=== PATIENT | male | born 1980 | race Caucasian/White ===

== ENCOUNTER 2016-04-22 11:47 | Emergency (ER) | payer OTHER ==
--- NOTE | 2016-04-22 12:22 | EDDOCDS ---
Physician Documentation [facility] Name: Jj Duval Age: 35 yrs Sex: Male : 1980 Arrival Date: 04/22/2016 Time: 11:47 Bed TR7 Private MD: [facility] [place] Disposition: 04/22/16 12:14 Discharged to Home/Self Care. Impression: Acute frontal sinusitis, unspecified. - Condition is Stable. - Discharge Instructions: Sinusitis, Adult. - Prescriptions for Levaquin 500 mg Oral Tablet - take 1 tablet by ORAL route once daily for 10 days; 10 tablet. Prednisone 20 mg Oral Tablet - take 2 tablet by ORAL route once daily for 5 days; 10 tablet. - Medication Reconciliation, Local Pharmacy Hours form. - Follow up: [facility]; When: Call to arrange an appointment; Reason: Wound/Symptom Recheck, Recheck today's complaints, Worsening of conditions, Continuance of care. - Problem is an ongoing problem. - Symptoms are unchanged. Historical: - Allergies: no known allergies; - Home Meds: 1. amoxicillin 125 mg Oral chew 2 times per day 2. pseudoephedrine HCl 30 mg Oral tab prn (Last dose: 04/21/2016) - PMHx: Sleep Apnea w/ CPAP; - PSHx: Ankle, left fracture repair hardware removal; - Social history: Smoking status: Chewing Tobacco No barriers to communication noted, The patient speaks fluent Latvian. - Family history: Not pertinent. - : The pt / caregiver states he / she is not on anticoagulants. Home medication list is obtained from the patient. - Exposure Risk Screening:: None identified. Vital Signs: 04/22 11:49 BP 154 / 81; Pulse 86; Resp 18 S; Temp 96.3(O); Pulse Ox 97% on R/A; Weight 108.86 kg / dd6 240 lbs (R); Height 6 ft. 3 in. (190.50 cm) (R); 11:49 Body Mass Index 30.00 (108.86 kg, 190.50 cm) dd6 Signatures: Breana Gustafson RN RN jjBella Eaton RN RN hs1 Ritesh Rankin PATerrenceC PATerrenceC cc10 MTDD
--- NOTE | 2016-04-22 12:22 | EDDOCDS ---
Nurse's Notes [facility] Name: Jj Duval Age: 35 yrs Sex: Male : 1980 Arrival Date: 04/22/2016 Time: 11:47 Bed TR7 Private MD: IAConcepción COCHRAN Diagnosis: Acute frontal sinusitis, unspecified Presentation: 04/22 11:53 Presenting complaint: Patient states: pressure to face and forehead for past 2 weeks jjr now with left eye pressure/pain today,prescribed amoxicillin 125 mg BID for 10 days by Mann Dia tomorrow is last dose. Adult Sepsis Screening: The patient does not have new or worsening altered mentation. Patient's respiratory rate is less than 22. Systolic blood pressure is greater than 100. Patient has a qSOFA score of 0- Negative Sepsis Screen. Suicide/Homicide risk assessment- the patient denies having any suicidal and/or homicidal ideations and does not present with any other emotional, behavioral or mental health complaints. 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 Transition of care: patient was not received from another setting of care. 11:53 Acuity: DESMOND Level 4 jjr 11:53 Method Of Arrival: Walkin/Carried/Asstd jjr Triage Assessment: 11:56 General: Appears in no apparent distress, Behavior is appropriate for age. Pain: jjr Location: forehead, right cheek, left cheek and left eye. HIV screening NA for this visit Offered previously. EENT: Reports nasal congestion. Historical: - Allergies: no known allergies; - Home Meds: 1. amoxicillin 125 mg Oral chew 2 times per day 2. pseudoephedrine HCl 30 mg Oral tab prn (Last dose: 04/21/2016) - PMHx: Sleep Apnea w/ CPAP; - PSHx: Ankle, left fracture repair hardware removal; - Social history: Smoking status: Chewing Tobacco No barriers to communication noted, The patient speaks fluent Afghan. - Family history: Not pertinent. - : The pt / caregiver states he / she is not on anticoagulants. Home medication list is obtained from the patient. - Exposure Risk Screening:: None identified. Screenin:20 Screening information is obtained from the patient. Fall risk: No risks identified. hs1 Assistance ADL's: requires no assistance with activities of daily living. Abuse/DV Screen: The patient / caregiver reports he/she is: not in a situation that causes fear, pain or injury. Nutritional screening: No deficits noted. Advance Directives: There is no active DNR order. home support is adequate. Assessment: 12:20 Reassessment: Patient appears in no apparent distress at this time. General: Appears in hs1 no apparent distress, comfortable, Behavior is appropriate for age, cooperative. EENT: Reports nasal congestion nasal discharge. Cardiovascular: No deficits noted. Derm: Skin is pink, warm & dry. normal. Vital Signs: 11:49 BP 154 / 81; Pulse 86; Resp 18 S; Temp 96.3(O); Pulse Ox 97% on R/A; Weight 108.86 kg dd6 (R); Height 6 ft. 3 in. (190.50 cm) (R); 11:49 Body Mass Index 30.00 (108.86 kg, 190.50 cm) dd6 Vitals: 11:49 Log In Time: April 22, 2016 at 11:47. dd6 ED Course: 11:49 Patient visited by Omar Mdeel PCA. dd6 11:49 [facility] is Private Physician. dd6 11:49 Patient moved to Waiting dd6 11:50 Patient moved to Pre RCE dd6 11:51 [facility] cc10 11:51 Charlene Hay MD is Attending Physician. cc10 11:53 Patient moved to Triage 1 [facility] 11:54 Triage Initiated jjr 12:05 Patient visited by Ritesh Rankin PA-C. cc10 12:05 Patient visited by Ritesh Rankin PA-C. cc10 12:14 [facility] is Referral Physician. cc10 12:18 [facility] No IV's were initiated during this patient's visit. No procedures done that require hs1 assistance. 12:21 The patient / caregiver is instructed regarding the plan of care and ED course. hs1 Order Results: There are currently no results for this order. Outcome: 12:14 Discharge ordered by Provider. cc10 12:20 Discharge Assessment: Patient awake, alert and oriented x 3. No cognitive and/or hs1 functional deficits noted. Patient verbalized understanding of disposition instructions. patient administered narcotics - no. The following High Risk Discharge criteria are identified: None. Discharged to home ambulatory. Condition: stable. Discharge instructions given to patient, Instructed on discharge instructions, follow up and referral plans. medication usage, Demonstrated understanding of instructions, medications, Pt was receptive of discharge instructions/ teaching. Prescriptions given X 2. No special radiology studies were completed. Property sent home with patient. 12:21 Patient left the ED. hs1 Signatures: Douglas Torres, RN RN Breana Feliciano RN RN jjr Desormeau, Daniell, RELAY TECHNICIAN RELAY TECHNICIAN dd6 Bella Leon RN RN hs1 Brianna Putnam, RELAY TECHNICIAN RELAY TECHNICIAN ct3 Ritesh Rankin PA-C PA-C cc10 MTDD
--- NOTE | 2016-04-24 13:22 | EDDOCDS ---
Physician Documentation [facility] Name: Jj Duval Age: 35 yrs Sex: Male : 1980 Arrival Date: 04/22/2016 Time: 11:47 Bed TR7 Private MD: [facility] [place] Disposition: 04/22/16 12:14 Discharged to Home/Self Care. Impression: Acute frontal sinusitis, unspecified. - Condition is Stable. - Discharge Instructions: Sinusitis, Adult. - Prescriptions for Levaquin 500 mg Oral Tablet - take 1 tablet by ORAL route once daily for 10 days; 10 tablet. Prednisone 20 mg Oral Tablet - take 2 tablet by ORAL route once daily for 5 days; 10 tablet. - Medication Reconciliation, Local Pharmacy Hours form. - Follow up: [facility] [place]; When: Call to arrange an appointment; Reason: Wound/Symptom Recheck, Recheck today's complaints, Worsening of conditions, Continuance of care. - Problem is an ongoing problem. - Symptoms are unchanged. Historical: - Allergies: no known allergies; - Home Meds: 1. amoxicillin 125 mg Oral chew 2 times per day 2. pseudoephedrine HCl 30 mg Oral tab prn (Last dose: 04/21/2016) - PMHx: Sleep Apnea w/ CPAP; - PSHx: Ankle, left fracture repair hardware removal; - Social history: Smoking status: Chewing Tobacco No barriers to communication noted, The patient speaks fluent [place]. - Family history: Not pertinent. - : The pt / caregiver states he / she is not on anticoagulants. Home medication list is obtained from the patient. - Exposure Risk Screening:: None identified. Vital Signs: 04/22 11:49 BP 154 / 81; Pulse 86; Resp 18 S; Temp 96.3(O); Pulse Ox 97% on R/A; Weight 108.86 kg / dd6 240 lbs (R); Height 6 ft. 3 in. (190.50 cm) (R); 11:49 Body Mass Index 30.00 (108.86 kg, 190.50 cm) dd6 MDM: 12:29 [facility] Payment Agreement was scanned into [employer] and attached to record. lg 12:55 T-Sheet-- Draft Copy was scanned into [employer] and attached to record. [facility] Signatures: Roverto Lovell, Reg Reg lg Breana Gustafson, RN RN jjBella Eaton RN RN hs1 Ritesh Rankin PA-C PA-C cc10 Bety Gomez The chart was reviewed and I authenticate all verbal orders and agree with the evaluation and treatment provided.Attachments: 12:29 [facility] Payment Agreement lg 12:55 T-Sheet-- Draft Copy [facility] Chart Complete MTDD
--- NOTE | 2016-04-24 13:22 | EDDOCDS ---
Nurse's Notes [facility] Name: Jj Duval Age: 35 yrs Sex: Male : 1980 Arrival Date: 04/22/2016 Time: 11:47 Bed TR7 Private MD: WIConcepción COCHRAN Diagnosis: Acute frontal sinusitis, unspecified Presentation: 04/22 11:53 Presenting complaint: Patient states: pressure to face and forehead for past 2 weeks jjr now with left eye pressure/pain today,prescribed amoxicillin 125 mg BID for 10 days by Mann Dia tomorrow is last dose. Adult Sepsis Screening: The patient does not have new or worsening altered mentation. Patient's respiratory rate is less than 22. Systolic blood pressure is greater than 100. Patient has a qSOFA score of 0- Negative Sepsis Screen. Suicide/Homicide risk assessment- the patient denies having any suicidal and/or homicidal ideations and does not present with any other emotional, behavioral or mental health complaints. 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 Transition of care: patient was not received from another setting of care. 11:53 Acuity: DESMOND Level 4 jjr 11:53 Method Of Arrival: Walkin/Carried/Asstd jjr Triage Assessment: 11:56 General: Appears in no apparent distress, Behavior is appropriate for age. Pain: jjr Location: forehead, right cheek, left cheek and left eye. HIV screening NA for this visit Offered previously. EENT: Reports nasal congestion. Historical: - Allergies: no known allergies; - Home Meds: 1. amoxicillin 125 mg Oral chew 2 times per day 2. pseudoephedrine HCl 30 mg Oral tab prn (Last dose: 04/21/2016) - PMHx: Sleep Apnea w/ CPAP; - PSHx: Ankle, left fracture repair hardware removal; - Social history: Smoking status: Chewing Tobacco No barriers to communication noted, The patient speaks fluent [place] Citizen. - Family history: Not pertinent. - : The pt / caregiver states he / she is not on anticoagulants. Home medication list is obtained from the patient. - Exposure Risk Screening:: None identified. Screenin:20 Screening information is obtained from the patient. Fall risk: No risks identified. hs1 Assistance ADL's: requires no assistance with activities of daily living. Abuse/DV Screen: The patient / caregiver reports he/she is: not in a situation that causes fear, pain or injury. Nutritional screening: No deficits noted. Advance Directives: There is no active DNR order. home support is adequate. Assessment: 12:20 Reassessment: Patient appears in no apparent distress at this time. General: Appears in hs1 no apparent distress, comfortable, Behavior is appropriate for age, cooperative. EENT: Reports nasal congestion nasal discharge. Cardiovascular: No deficits noted. Derm: Skin is pink, warm & dry. normal. Vital Signs: 11:49 BP 154 / 81; Pulse 86; Resp 18 S; Temp 96.3(O); Pulse Ox 97% on R/A; Weight 108.86 kg dd6 (R); Height 6 ft. 3 in. (190.50 cm) (R); 11:49 Body Mass Index 30.00 (108.86 kg, 190.50 cm) dd6 Vitals: 11:49 Log In Time: April 22, 2016 at 11:47. dd6 ED Course: 11:49 Patient visited by Omar Medel PCA. dd6 11:49 [facility] is Private Physician. dd6 11:49 Patient moved to Waiting dd6 11:50 Patient moved to Pre RCE dd6 11:51 [facility] cc10 11:51 Charlene Hay MD is Attending Physician. cc10 11:53 Patient moved to Triage 1 [facility] 11:54 Triage Initiated jjr 12:05 Patient visited by Ritesh Rankin PA-C. cc10 12:05 Patient visited by Ritesh Rankin PA-C. cc10 12:14 [facility] is Referral Physician. cc10 12:18 Patient moved to TR7 ct3 12:20 No IV's were initiated during this patient's visit. No procedures done that require hs1 assistance. 12:21 The patient / caregiver is instructed regarding the plan of care and ED course. hs1 12:29 [facility] [place] Payment Agreement was scanned into [employer] and attached to record. lg 12:55 T-Sheet-- Draft Copy was scanned into [employer] and attached to record. [facility] Order Results: There are currently no results for this order. Outcome: 12:14 Discharge ordered by Provider. cc10 12:20 Discharge Assessment: Patient awake, alert and oriented x 3. No cognitive and/or hs1 functional deficits noted. Patient verbalized understanding of disposition instructions. patient administered narcotics - no. The following High Risk Discharge criteria are identified: None. Discharged to home ambulatory. Condition: stable. Discharge instructions given to patient, Instructed on discharge instructions, follow up and referral plans. medication usage, Demonstrated understanding of instructions, medications, Pt was receptive of discharge instructions/ teaching. Prescriptions given X 2. No special radiology studies were completed. Property sent home with patient. 12:21 Patient left the ED. hs1 Signatures: Douglas Torres, RN RN dwRoverto Sanford, Frank Reg lg Breana Gustafson, RN RN Omar Perez, CLAIMS ADJUSTOR CLAIMS ADJUSTOR dd6 Bella Leon RN RN hs1 Brianna Putnam, CLAIMS ADJUSTOR CLAIMS ADJUSTOR ct3 Ritesh Rankin PA-C PA-C cc10 Bety Gomez Chart Complete [facility]
--- NOTE | 2016-04-24 13:22 | EDDOCDS ---
Physician Documentation [facility] Name: Jj Duval Age: 35 yrs Sex: Male : 1980 Arrival Date: 04/22/2016 Time: 11:47 Bed TR7 Private MD: [facility] [place] Disposition: 04/22/16 12:14 Discharged to Home/Self Care. Impression: Acute frontal sinusitis, unspecified. - Condition is Stable. - Discharge Instructions: Sinusitis, Adult. - Prescriptions for Levaquin 500 mg Oral Tablet - take 1 tablet by ORAL route once daily for 10 days; 10 tablet. Prednisone 20 mg Oral Tablet - take 2 tablet by ORAL route once daily for 5 days; 10 tablet. - Medication Reconciliation, Local Pharmacy Hours form. - Follow up: [facility] [place]; When: Call to arrange an appointment; Reason: Wound/Symptom Recheck, Recheck today's complaints, Worsening of conditions, Continuance of care. - Problem is an ongoing problem. - Symptoms are unchanged. Historical: - Allergies: no known allergies; - Home Meds: 1. amoxicillin 125 mg Oral chew 2 times per day 2. pseudoephedrine HCl 30 mg Oral tab prn (Last dose: 04/21/2016) - PMHx: Sleep Apnea w/ CPAP; - PSHx: Ankle, left fracture repair hardware removal; - Social history: Smoking status: Chewing Tobacco No barriers to communication noted, The patient speaks fluent Wallisian. - Family history: Not pertinent. - : The pt / caregiver states he / she is not on anticoagulants. Home medication list is obtained from the patient. - Exposure Risk Screening:: None identified. Vital Signs: 04/22 11:49 BP 154 / 81; Pulse 86; Resp 18 S; Temp 96.3(O); Pulse Ox 97% on R/A; Weight 108.86 kg / dd6 240 lbs (R); Height 6 ft. 3 in. (190.50 cm) (R); 11:49 Body Mass Index 30.00 (108.86 kg, 190.50 cm) dd6 MDM: 12:29 [facility] Payment Agreement was scanned into [employer] and attached to record. lg 12:55 T-Sheet-- Draft Copy was scanned into [employer] and attached to record. [facility] Signatures: Roverto Lovell, Reg Reg lg Breana Gustafson, RN RN jjBella Eaton RN RN hs1 Ritesh Rankin PA-C PA-C cc10 Bety Gomez The chart was reviewed and I authenticate all verbal orders and agree with the evaluation and treatment provided.Attachments: 12:29 [facility] Payment Agreement lg 12:55 T-Sheet-- Draft Copy [facility] Chart Complete MTDD
== END 2016-04-22 12:21 | disposition home or self-care (01) ==
LOC: M ED 11:47
DX: J01.90 Acute sinusitis, unspecified (principal); G47.30 Sleep apnea, unspecified; Z87.81 Personal history of (healed) traumatic fracture; F17.228 Nicotine dependence, chewing tobacco, with other nicotine-induced disorders

== ENCOUNTER → 2016-05-22 | Outpatient (CLI) | payer OTHER ==
--- NOTE | 2016-05-22 09:10 | REP ---
MAXILLOFACIAL CT WITHOUT CONTRAST: HISTORY: Chronic sinusitis. The right frontal sinus is hypoplastic. Minimal mucosal thickening is present in the maxillary sinuses. The remaining sinuses are clear. The osteomeatal units are patent. The middle and inferior nasal turbinates are partially paradoxical. There is mild deviation of the nasal septum to the left. A spur is present arising from the left side of the nasal septum. The spur abuts the left middle and inferior nasal turbinates. The cribriform plate, medial quintero of the orbits and optic canals are intact. The carotid canals form a segment of the posterolateral quintero of the sphenoid sinus. IMPRESSION: Sinus mucosal thickening as described above. Signed by Nixon Gleason MD 05/22/2016 09:17 A
== END ==
LOC: M RAD 08:02
PROVIDERS: ATTEND Otolaryngology
DX: J32.4 Chronic pansinusitis (principal)

== ENCOUNTER 2016-07-08 11:39 | Emergency (ER) | payer OTHER ==
[~2016-07-08] VITALS: Ht 190.5 cm; Wt 108.4 kg
[2016-07-08 11:44] VITALS: BP 165/78
[2016-07-08] MEDS ORDERED: CLEO300C2 PO (13:19)
== END 2016-07-08 13:37 | disposition home or self-care (01) ==
LOC: M ED 13:26
DX: L02.415 Cutaneous abscess of right lower limb (principal); L02.811 Cutaneous abscess of head [any part, except face]

== ENCOUNTER 2016-12-18 07:00 | Day surgery (SDC) | payer OTHER ==
[~2016-12-18] VITALS: Ht 190.5 cm; Wt 108.9 kg
[~2016-12-18 07:00] MED LIST: CLEO300C2 PO; FLON1SPR
[2016-12-18] MEDS ORDERED: LIDOCAINE 1% MDV 20ML VIAL SC ONE (07:15)
[2016-12-18] MEDS ORDERED: LR 1,000 ML IV ONE (07:15)
[2016-12-18] MEDS ORDERED: fentaNYL 100 MCG/2 ML INJECTION (J3010) As Ordered ONE ×2 (07:58→08:59)
[2016-12-18] MEDS ORDERED: MIDAZOLAM INJ 2 MG/2 ML VIAL (J2250) As Ordered ONE (07:58)
[2016-12-18] MEDS ORDERED: METHYLENE BLUE 0.5% (5MG/ML) 10 ML AMP (PROVAYBLUE)(Q9968 PER 1MG) As Ordered ONE (08:20)
[2016-12-18] MEDS ORDERED: LIDOCAINE W/EPINEPHRINE 1% 20ML VIAL As Ordered ONE (08:20)
[2016-12-18] MEDS ORDERED: EPINEPHrine 1MG/ML INJ 30ML MD-VIAL As Ordered ONE (08:21)
[2016-12-18] MEDS ORDERED: ONDANSETRON 4MG/2ML VIAL (J2405) As Ordered ONE (08:51)
[2016-12-18] MEDS ORDERED: LIDOCAINE 2% INJ 100 MG/5 ML SDV (FOR ANES.) As Ordered ONE (08:51)
[2016-12-18] MEDS ORDERED: dexameTHASONE 4 MG/ML 1ML VIAL (J1100) As Ordered ONE (08:51)
[2016-12-18] MEDS ORDERED: PROPOFOL 200 MG/20 ML VIAL As Ordered ONE (08:51)
[2016-12-18] MEDS ORDERED: REMIFENTANIL 1MG 3ML VIAL As Ordered ONE (08:55)
[2016-12-18] MEDS ORDERED: ONDANSETRON 4MG/2ML VIAL (J2405) IV PRN (10:30)
[2016-12-18] MEDS ORDERED: fentaNYL 100 MCG/2 ML INJECTION (J3010) IV PRN (10:30)
[2016-12-18] MEDS ORDERED: PERCOCET 5MG/325MG TAB PO PRN (10:30)
[2016-12-18] MEDS ORDERED: LR 1,000 ML IV SCH ×2 (10:30→11:00)
--- NOTE | 2016-12-18 10:40 | RO ---
DATE OF PROCEDURE: 12/18/2016 PREOPERATIVE DIAGNOSIS: POSTOPERATIVE DIAGNOSIS: OPERATIVE PROCEDURE: SURGEON: Dr. Luis Rahman CAREER COACH: ANESTHESIA: An incision was made anterior in a subperichondrial plane. Periosteal plane was developed. I removed portions of the quadrangular cartilage of the ethmoid plate. The ethmoid plate was from the quadrangular cartilage. I took portions of the maxillary crest and vomer and removed them as well. I sectioned the cartilage anteriorly. Once this was done, the septum was straight, so the incision was closed with interrupted #4-0 chromic suture. Incision made in anterior and inferior turbinate on both sides. I elevated the mucosa off of the josseline and used the microdebrider to remove a portion of the josseline. That incision was closed with #4-0 Vicryl suture. The patient tolerated the procedure well. Less than 50 mL of estimated blood loss. I put pledgets of Gelfoam in the nose and the patient was extubated and transferred to the recovery room in excellent condition.
--- NOTE | 2016-12-18 10:47 | RO ---
DATE OF PROCEDURE: 12/18/2016 PREOPERATIVE DIAGNOSIS: Nasal septal deviation and chronic rhinitis. POSTOPERATIVE DIAGNOSIS: Nasal septal deviation and chronic rhinitis. PROCEDURE: Septoplasty, bilateral turbinectomy. SURGEON: Luis Rahman MD EARTH SCIENCE TEACHER: ANESTHESIA: DESCRIPTION OF PROCEDURE: Under general anesthesia with the patient intubated, the patient was draped in the usual manner. I used pledgets of adrenaline 1:1,000 and infiltrated with lidocaine with epinephrine. I started first on the left side. I made an incision anterior and elevated the subperichondrial and periosteal plane. I the quadrangular and ethmoid plates and the maxillary crest. I removed portions of the ethmoid plate, maxillary crest and vomer, which were deviated. I sectioned the cartilage anteriorly. An incision was made anterior in a subperichondrial plane. Periosteal plane was developed. I removed portions of the quadrangular cartilage of the ethmoid plate. The ethmoid plate was from the quadrangular cartilage. I took portions of the maxillary crest and vomer and removed them as well. I sectioned the cartilage anteriorly. Once this was done, the septum was straight, so the incision was closed with interrupted #4-0 chromic suture. Incision made in anterior and inferior turbinate on both sides. I elevated the mucosa off of the josseline and used the microdebrider to remove a portion of the josseline. That incision was closed with #4-0 Vicryl suture. The patient tolerated the procedure well. Less than 50 mL of estimated blood loss. I put pledgets of Gelfoam in the nose and the patient was extubated and transferred to the recovery room in excellent condition. edited: 12/21/2016 1054 tkf MTDD
[2016-12-18] MEDS ORDERED: ACETAMINOPH W/CODEINE #3 TAB UD PO PRN (11:00)
[2016-12-18 11:40] VITALS: BP 121/67
== END 2016-12-18 12:05 | disposition home or self-care (01) ==
LOC: M SDC 07:00
PROVIDERS: ATTEND Otolaryngology
DX: J34.2 Deviated nasal septum (principal); J31.0 Chronic rhinitis; M54.2 Cervicalgia; R06.83 Snoring; G47.33 Obstructive sleep apnea (adult) (pediatric)
CPT/HCPCS: 30130; 30520; 88300; J1100; J2250; J2405; J3010; Q9968

== ENCOUNTER 2017-01-07 15:40 | Emergency (ER) | payer OTHER ==
[~2017-01-07] VITALS: Ht 190.5 cm; Wt 111.4 kg
[2017-01-07] MEDS ORDERED: KETOROLAC 30 MG/ML VIAL (J1885) IV ONE (18:00)
[2017-01-07 18:51] LABS: BASO % 0.3 % (0.0-1.0); EOS # 0.4 10^3/uL (0.0-0.50); EOS % 3.4 % (0.0-3.0); IMMATURE GRANULOCYTE % 0.3 % (0-0); LYMPH # 2.6 10^3/uL (1.5-4.5); LYMPH % 22.1 % (24.0-44.0); MEAN CORPUSCULAR HEMOGLOBIN 29.1 pg (27.0-33.0); MEAN CORPUSCULAR HGB CONC 35.1 g/dl (32.0-36.5); MEAN CORPUSCULAR VOLUME 82.9 fl (80.0-96.0); MONO % 8.3 % (0.0-5.0); NEUTROPHILS # 7.7 10^3/uL (1.8-7.7); NEUTROPHILS % 65.6 % (36.0-66.0); PLATELET COUNT, AUTOMATED 283 10^3/uL (150-450); RED CELL DISTRIBUTION WIDTH 12.1 % (11.5-14.5); WHITE BLOOD COUNT 11.7 10^3/uL (4.0-10.0)
[2017-01-07 19:08] LABS: ANION GAP 7 MEQ/L (8-16); BLOOD UREA NITROGEN 16 MG/DL (7-18); CALCIUM LEVEL 8.7 MG/DL (8.5-10.1); CARBON DIOXIDE LEVEL 28 MEQ/L (21-32); CHLORIDE LEVEL 103 MEQ/L (98-107); CREATININE FOR GFR 0.92 MG/DL (0.70-1.30); GLOMERULAR FILTRATION RATE > 60.0 (>60); GLUCOSE, FASTING 87 MG/DL (70-105); POTASSIUM SERUM 3.9 MEQ/L (3.5-5.1); SODIUM LEVEL 138 MEQ/L (136-145)
[2017-01-07 19:09] LABS: ERYTHROCYTE SEDIMENTATION RATE 2 mm/hr (0-15)
[2017-01-07] MEDS ORDERED: dexameTHASONE 20 MG/5 ML VIAL (J1100) IV ONE (20:45)
[2017-01-07] MEDS ORDERED: KEFL500C17 PO (20:49)
[2017-01-07 21:39] VITALS: BP 147/93
--- NOTE | 2017-01-08 06:06 | REP ---
Left hand series: Four views. History: Cellulitis. Question osteomyelitis. Findings: Four views of the left hand demonstrate overall normal mineralization. There is no evidence of fracture, soft tissue gas or opaque foreign body. Mild soft tissue swelling is seen dorsally over the metacarpals. Impression: Soft-tissue swelling. No acute bony abnormality. Signed by Pritesh Reyna MD 01/08/2017 08:45 A
== END 2017-01-07 21:42 | disposition home or self-care (01) ==
LOC: M ED 15:40
DX: S60.562A Insect bite (nonvenomous) of left hand, initial encounter (principal); W57.XXXA Bitten or stung by nonvenomous insect and other nonvenomous arthropods, initial encounter; Y92.89 Other specified places as the place of occurrence of the external cause; Y93.89 Activity, other specified; Y99.8 Other external cause status
CPT/HCPCS: 73130; 80048; 85025; 85652; 86140; 87040; 87070; 87077; 87186; 96374; 96375; 99283; J0690; J1100; J1885